=== PATIENT | female | born 1985 | race American Indian/Alaskan Native ===

== ENCOUNTER 2020-05-14 22:52 | Emergency (ER) | payer OTHER ==
[2020-05-14] MEDS ORDERED: ACETAMINOPHEN 500 MG TAB PO ONE (23:42)
[2020-05-14 23:50] VITALS: BP 132/79
[2020-05-15 00:27] LABS: Basophils % (Auto) 0.2 % (0.0-1.8); Eosinophils # (Auto) 0.1 K/mm3 (0.0-0.4); Eosinophils % (Auto) 0.6 % (0.0-4.3); Hematocrit 37.7 % (30.3-42.9); Lymphocytes # (Auto) 2.9 K/mm3 (1.2-5.4); Lymphocytes % (Auto) 21.4 % (13.4-35.0); Mean Corpuscular HGB Conc 35 % (30-34); Mean Corpuscular Volume 93 fl (79-97); Monocytes # (Auto) 1.1 K/mm3 (0.0-0.8); Platelet Count 278 K/mm3 (140-440); Red Blood Count 4.07 M/mm3 (3.65-5.03); Red Cell Distribution Width 14.8 % (13.2-15.2)
[2020-05-15 00:38] LABS: Alanine Aminotransferase 10 units/L (7-56); Albumin 3.9 g/dL (3.9-5); Blood Urea Nitrogen 5 mg/dL (7-17); Calcium 9.4 mg/dL (8.4-10.2); Hemolysis Index 5
[2020-05-15 00:45] LABS: BUN/Creatinine Ratio 10
[2020-05-15 01:11] LABS: Bilirubin,Urine NEG (Negative); Blood,Urine NEG (Negative); Color,Urine Yellow (Yellow); Mucus,Urine FEW /HPF; Protein,Urine <15 mg/dL mg/dL (Negative)
--- NOTE | 2020-05-15 01:39 | Emergency Department Report ---
HPI - General Chief Complaint: Abdominal Pain Time Seen by Provider: 05/15/20 00:21 - HPI HPI: This is a 35-year-old -[place] female presents to the emergency department with complaint of some pelvic pain/pressure and low back pain, that started earlier today. Patient took some Tylenol about 4 hours prior to presentation without much relief. She denies any vaginal bleeding, vaginal discharge, dysuria, fever, nausea, vomiting, constipation or diarrhea. She is currently about 19 weeks with this she is G3, P2. Currently the pelvic and back pain is at about a 7 out of 10 in intensity. No known aggravating or alleviating factors. The patient follows with Dr. Isidro for OBGYN and [facility] for perinatology. No recent travel or sick contacts at home. ED Past Medical Hx - Past Medical History Previous Medical History?: No - Surgical History Past Surgical History?: No - Social History Smoking Status: Never Smoker Substance Use Type: None ED Review of Systems ROS: Stated complaint: 19WKS PREG/LOWER ABD/BACK PAIN Other details as noted in HPI Comment: All other systems reviewed and negative Constitutional: denies: chills, fever Eyes: denies: eye pain, vision change ENT: denies: ear pain, throat pain Respiratory: denies: cough, shortness of breath Cardiovascular: denies: chest pain, palpitations Gastrointestinal: denies: nausea, vomiting Genitourinary: other (pelvic pain). denies: discharge Musculoskeletal: back pain. denies: arthralgia Skin: denies: rash, lesions Neurological: denies: headache, weakness Physical Exam - Physical Exam Vital Signs: Vital Signs 05/14/20 05/15/20 23:39 00:05 Temperature 98.1 F Pulse Rate 100 H Respiratory 16 18 Rate Blood Pressure 132/79 O2 Sat by Pulse 100 Oximetry Physical Exam: GENERAL: The patient is well-developed well-nourished. HENT: Normocephalic. Atraumatic. Patient has moist mucous membranes. EYES: Extraocular motions are intact. NECK: Supple. Trachea is midline. CHEST/LUNGS: Clear to auscultation. There is no respiratory distress noted. HEART/CARDIOVASCULAR: Regular. There is no tachycardia. There is no murmur. ABDOMEN: Abdomen is soft, nontender. No guarding. Patient has normal bowel sounds. SKIN: Skin is warm and dry. NEURO: The patient is awake, alert, and oriented. The patient is cooperative. Normal speech. MUSCULOSKELETAL: There is no tenderness or deformity. There is no limitation range of motion. BACK: No midline thoracic or lumbar tenderness to palpation. ED Course Vital Signs 05/14/20 05/15/20 23:39 00:05 Temperature 98.1 F Pulse Rate 100 H Respiratory 16 18 Rate Blood Pressure 132/79 O2 Sat by Pulse 100 Oximetry ED Medical Decision Making - Lab Data Result diagrams: 05/15/20 00:01 05/15/20 00:01 Lab Results 05/14/20 05/15/20 05/15/20 Range/Units 23:44 00:01 00:01 WBC 13.6 H (4.5-11.0) K/mm3 RBC 4.07 (3.65-5.03) M/mm3 Hgb 13.0 (10.1-14.3) gm/dl Hct 37.7 (30.3-42.9) % MCV 93 (79-97) fl MCH 32 (28-32) pg MCHC 35 H (30-34) % RDW 14.8 (13.2-15.2) % Plt Count 278 (140-440) K/mm3 Lymph % (Auto) 21.4 (13.4-35.0) % [place] % (Auto) 8.0 H (0.0-7.3) % Eos % (Auto) 0.6 (0.0-4.3) % Baso % (Auto) 0.2 (0.0-1.8) % Lymph # (Auto) 2.9 (1.2-5.4) K/mm3 [place] # (Auto) 1.1 H (0.0-0.8) K/mm3 Eos # (Auto) 0.1 (0.0-0.4) K/mm3 Baso # (Auto) 0.0 (0.0-0.1) K/mm3 Seg Neutrophils % 69.8 (40.0-70.0) % Seg Neutrophils # 9.5 H (1.8-7.7) K/mm3 Sodium 137 (137-145) mmol/L Potassium 4.2 (3.6-5.0) mmol/L Chloride 101.6 (98-107) mmol/L Carbon Dioxide 23 (22-30) mmol/L Anion Gap 17 mmol/L BUN 5 L (7-17) mg/dL Creatinine 0.5 L (0.6-1.2) mg/dL Estimated GFR > 60 ml/min BUN/Creatinine Ratio 10 % Glucose 119 H (65-100) mg/dL Calcium 9.4 (8.4-10.2) mg/dL Total Bilirubin 0.20 (0.1-1.2) mg/dL AST 10 (5-40) units/L ALT 10 (7-56) units/L Alkaline Phosphatase 53 (35-129) units/L Total Protein 6.6 (6.3-8.2) g/dL Albumin 3.9 (3.9-5) g/dL Albumin/Globulin Ratio 1.4 % HCG, Quant (0-4) mIU/mL Urine Color Yellow (Yellow) Urine Turbidity Clear (Clear) Urine pH 6.0 (5.0-7.0) Ur Specific [place] 1.013 (1.003-1.030) Urine Protein <15 mg/dl (Negative) mg/dL Urine Glucose (UA) 50 (Negative) mg/dL Urine Ketones Neg (Negative) mg/dL Urine Blood Neg (Negative) Urine Nitrite Neg (Negative) Urine Bilirubin Neg (Negative) Urine Urobilinogen 2.0 (<2.0) mg/dL Ur Leukocyte Esterase Neg (Negative) Urine WBC (Auto) 1.0 (0.0-6.0) /HPF Urine RBC (Auto) 1.0 (0.0-6.0) /HPF U Epithel Cells (Auto) 4.0 (0-13.0) /HPF Urine Mucus Few /HPF 05/15/20 Range/Units 00:17 WBC (4.5-11.0) K/mm3 RBC (3.65-5.03) M/mm3 Hgb (10.1-14.3) gm/dl Hct (30.3-42.9) % MCV (79-97) fl MCH (28-32) pg MCHC (30-34) % RDW (13.2-15.2) % Plt Count (140-440) K/mm3 Lymph % (Auto) (13.4-35.0) % [place] % (Auto) (0.0-7.3) % Eos % (Auto) (0.0-4.3) % Baso % (Auto) (0.0-1.8) % Lymph # (Auto) (1.2-5.4) K/mm3 [place] # (Auto) (0.0-0.8) K/mm3 Eos # (Auto) (0.0-0.4) K/mm3 Baso # (Auto) (0.0-0.1) K/mm3 Seg Neutrophils % (40.0-70.0) % Seg Neutrophils # (1.8-7.7) K/mm3 Sodium (137-145) mmol/L Potassium (3.6-5.0) mmol/L Chloride (98-107) mmol/L Carbon Dioxide (22-30) mmol/L Anion Gap mmol/L BUN (7-17) mg/dL Creatinine (0.6-1.2) mg/dL Estimated GFR ml/min BUN/Creatinine Ratio % Glucose (65-100) mg/dL Calcium (8.4-10.2) mg/dL Total Bilirubin (0.1-1.2) mg/dL AST (5-40) units/L ALT (7-56) units/L Alkaline Phosphatase (35-129) units/L Total Protein (6.3-8.2) g/dL Albumin (3.9-5) g/dL Albumin/Globulin Ratio % HCG, Quant 69706 H (0-4) mIU/mL Urine Color (Yellow) Urine Turbidity (Clear) Urine pH (5.0-7.0) Ur Specific [place] (1.003-1.030) Urine Protein (Negative) mg/dL Urine Glucose (UA) (Negative) mg/dL Urine Ketones (Negative) mg/dL Urine Blood (Negative) Urine Nitrite (Negative) Urine Bilirubin (Negative) Urine Urobilinogen (<2.0) mg/dL Ur Leukocyte Esterase (Negative) Urine WBC (Auto) (0.0-6.0) /HPF Urine RBC (Auto) (0.0-6.0) /HPF U Epithel Cells (Auto) (0-13.0) /HPF Urine Mucus /HPF - Radiology Data Radiology results: report reviewed ULTRASOUND OBSTETRIC INDICATION / CLINICAL INFORMATION: Pelvic pain. Clinical Gestational Age (GA) in weeks, days: 19 weeks 0 days TECHNIQUE: Transabdominal. COMPARISON: None available. FINDINGS: NUMBER: Single PRESENTATION: breech PLACENTA: posterior and free of the os. MATERNAL ADNEXA: No significant abnormality. AMNIOTIC FLUID VOLUME: normal AMNIOTIC FLUID INDEX (LUIS) in cm (if measured): Not measured Cervical length is 4.5 cm anatomical survey not performed. MEASUREMENTS: - Biparietal Diameter = 4.1 cm = 18 weeks, 2 days - Head Circumference = 15.0 cm = 18 weeks, 0 days - Abdominal Circumference = 12.1 cm = 17 weeks, 6 days - Femur Length = 2.3 cm = 16 weeks, 6 days - Estimated Weight (in grams, if calculated): 196 g - Heart Rate (beats per minute): 163 ADDITIONAL FINDINGS: 2 fibroids are present posteriorly measuring 5.2 and 4.9 cm respectively. AVERAGE ULTRASOUND AGE (AUA) in weeks, days = 17 weeks 5 days IMPRESSION: 1. Single intrauterine with AUA of 17 weeks, 5 days 2. No significant acute sonographic abnormality. 3. Uterine fibroids - Medical Decision Making This patient presents to the emergency department with complaint of some pelvic pain/pressure that she also feels in the low back that started earlier today. It is a sharp pain that lasts for about 30 seconds and is intermittent. It was much more frequent earlier in the day, but improved somewhat after taking Tylenol this evening. She denies any vaginal bleeding or discharge, dysuria. Vital signs have been reassuring throughout her ED course including being afebr ile. Patient's labs show a mild leukocytosis of 13,000, a beta-hCG of about 41,000. Normal metabolic panel. No urinary tract infection found. ultrasound shows a live intrauterine at about 17 weeks. The patient has good outpatient follow-up with both her DIRECTOR BIOLOGY and perinatologist, and has an appointment today () with the DIRECTOR BIOLOGY. For all these reasons the patient appears safe for discharge home at this time. She has been instructed to return to the emergency department with any worsening of her symptoms or with any acute distress. Critical Care Time: No Critical care attestation.: If time is entered above; I have spent that time in minutes in the direct care of this critically ill patient, excluding procedure time. ED Disposition Clinical Impression: Pelvic pain Back pain Qualifiers: Back pain location: low back pain Chronicity: unspecified Back pain laterality: unspecified Sciatica presence: without sciatica Qualified Code(s): M54.5 - Low back pain Qualifiers: Weeks of gestation: 17 weeks Qualified Code(s): Z3A.17 - 17 weeks gestation of Disposition: DC-01 TO HOME OR SELFCARE Is pt being admited?: No Condition: Stable Instructions: Round Ligament Pain, Pelvic Pain, Female, Second Trimester of , Abdominal Pain (ED) Additional Instructions: Please follow-up with your DIRECTOR BIOLOGY as previously scheduled. Return to the emergency department with any worsening of your symptoms, development of vaginal bleeding, new or concerning symptoms not addressed during this emergency department visit, or with any acute distress. Referrals: OBGYN, Your [Other] - 05/15/20 Forms: Work/School Release Form(ED) Time of Disposition: 02:25
--- NOTE | 2020-05-15 07:37 | Ultrasound Report ---
ULTRASOUND OBSTETRIC INDICATION / CLINICAL INFORMATION: Pelvic pain. Clinical Gestational Age (GA) in weeks, days: 19 weeks 0 days TECHNIQUE: Transabdominal. COMPARISON: None available. FINDINGS: NUMBER: Single PRESENTATION: breech PLACENTA: posterior and free of the os. MATERNAL ADNEXA: No significant abnormality. AMNIOTIC FLUID VOLUME: normal AMNIOTIC FLUID INDEX (LUIS) in cm (if measured): Not measured Cervical length is 4.5 cm anatomical survey not performed. MEASUREMENTS: - Biparietal Diameter = 4.1 cm = 18 weeks, 2 days - Head Circumference = 15.0 cm = 18 weeks, 0 days - Abdominal Circumference = 12.1 cm = 17 weeks, 6 days - Femur Length = 2.3 cm = 16 weeks, 6 days - Estimated Weight (in grams, if calculated): 196 g - Heart Rate (beats per minute): 163 ADDITIONAL FINDINGS: 2 fibroids are present posteriorly measuring 5.2 and 4.9 cm respectively. AVERAGE ULTRASOUND AGE (AUA) in weeks, days = 17 weeks 5 days IMPRESSION: 1. Single intrauterine with AUA of 17 weeks, 5 days 2. No significant acute sonographic abnormality. 3. Uterine fibroids Signer Name: Judith Jackson MD Signed: 05/15/2020 2:05 AM Workstation Name: [email or web address]
== END 2020-05-15 02:44 | disposition home or self-care (01) ==
LOC: ED 22:52
DX: O26.892 Other specified pregnancy related conditions, second trimester (principal); R10.2 Pelvic and perineal pain; M54.5 Low back pain; Z3A.17 17 weeks gestation of pregnancy; Z88.8 Allergy status to other drugs, medicaments and biological substances
CPT/HCPCS: 36415; 76805; 80053; 81001; 84702; 85025

== ENCOUNTER 2020-06-16 23:55 | Emergency (ER) | payer OTHER ==
[2020-06-17 01:36] LABS: Basophils % (Auto) 0.3 % (0.0-1.8); Eosinophils # (Auto) 0.1 K/mm3 (0.0-0.4); Hematocrit 34.9 % (30.3-42.9); Hemoglobin 11.8 gm/dl (10.1-14.3); Lymphocytes # (Auto) 2.1 K/mm3 (1.2-5.4); Lymphocytes % (Auto) 16.6 % (13.4-35.0); Mean Corpuscular HGB Conc 34 % (30-34); Mean Corpuscular Volume 92 fl (79-97); Monocytes # (Auto) 0.6 K/mm3 (0.0-0.8); Monocytes % (Auto) 5.2 % (0.0-7.3); Platelet Count 274 K/mm3 (140-440); Red Blood Count 3.78 M/mm3 (3.65-5.03); Red Cell Distribution Width 14.6 % (13.2-15.2)
[2020-06-17 01:44] LABS: Alanine Aminotransferase 11 units/L (7-56); Albumin 3.6 g/dL (3.9-5); Blood Urea Nitrogen 5 mg/dL (7-17); Hemolysis Index 9
[2020-06-17 02:01] LABS: BUN/Creatinine Ratio 13
[2020-06-17 03:22] LABS: INR 0.98 (0.87-1.13)
[2020-06-17 03:23] LABS: Partial Thromboplastin Time 33.6 Sec. (24.2-36.6)
--- NOTE | 2020-06-17 03:32 | XRay Report ---
CHEST 1 VIEW 06/17/2020 2:17 AM INDICATION / CLINICAL INFORMATION: sob. COMPARISON: None available. FINDINGS: SUPPORT DEVICES: None. HEART / MEDIASTINUM: No significant abnormality. LUNGS / PLEURA: No significant pulmonary or pleural abnormality. No pneumothorax. ADDITIONAL FINDINGS: No significant additional findings. IMPRESSION: 1. No acute findings. Signer Name: Rodriguez Flores MD Signed: 06/17/2020 3:27 AM Workstation Name: [id number]
--- NOTE | 2020-06-17 03:46 | Emergency Department Report ---
ED Shortness of Breath HPI - General Chief Complaint: Dyspnea/Respdistress Stated Complaint: EMESIS/CHEST PAIN/NAUSEA Time Seen by Provider: 06/17/20 02:37 Source: patient Mode of arrival: Ambulatory Limitations: No Limitations - History of Present Illness Initial Comments: 35-year-old female, 23 weeks , presents to ED with chest pain or shortne ss of breath. Patient states she awoke from sleep experiencing shortness of breath. She reports an episode of emesis while driving to the emergency room. Patient states she is unsure if her symptoms are due to the medication that she is taking for labor called [place]. Patient denies any cough or fever. OB: Dr Reyes (located in [place]) Complaint: shortness of breath, chest pain -: hour(s) (4) Severity: moderate Quality: burning Consistency: constant Improves With: nothing Worsens With: nothing Associated Symptoms: chest pain, nausea/vomiting Treatments Prior to Arrival: none - Related Data Home Oxygen Therapy: No Allergies Allergy/AdvReac Type Severity Reaction Status Date / Time morphine Allergy Hives Verified 05/14/20 23:48 ED Review of Systems ROS: Stated complaint: EMESIS/CHEST PAIN/NAUSEA Other details as noted in HPI Comment: All other systems reviewed and negative Constitutional: denies: chills, fever Respiratory: shortness of breath Cardiovascular: chest pain Gastrointestinal: nausea, vomiting. denies: abdominal pain ED Past Medical Hx - Past Medical History Previous Medical History?: No - Surgical History Past Surgical History?: No - Social History Smoking Status: Never Smoker Substance Use Type: None ED Physical Exam - General Limitations: No Limitations General appearance: alert, in no apparent distress - Head Head exam: Present: atraumatic, normocephalic - Eye Eye exam: Present: normal appearance, EOMI - ENT ENT exam: Present: mucous membranes moist - Neck Neck exam: Present: normal inspection - Respiratory Respiratory exam: Present: normal lung sounds bilaterally. Absent: respiratory distress - Cardiovascular Cardiovascular Exam: Present: normal rhythm, tachycardia - GI/Abdominal GI/Abdominal exam: Present: soft, other (gravid abdomen; heart tones 153). Absent: tenderness - Extremities Exam Extremities exam: Present: normal inspection. Absent: pedal edema, calf tenderness - Neurological Exam Neurological exam: Present: alert, oriented X3 - Psychiatric Psychiatric exam: Present: normal affect, normal mood - Skin Skin exam: Present: warm, dry, intact, normal color ED Course Vital Signs 06/17/20 06/17/20 00:13 02:23 Temperature 98.8 F Pulse Rate 104 H 94 H Respiratory 16 17 Rate Blood Pressure 140/69 O2 Sat by Pulse 100 98 Oximetry - Consultations Consultation #1: 06/17/20 04:11 Serious reaction secondary to [place] injections include thromboemboli. Patient currently on this medication with complaint of chest pain and shortness of breath. PE is on the differential given pt's status, the fact that she is on this medication, and S1Q3T3 appearance of EKG. Discussed risks and benefits of CTA Chest. Patient asked to speak with her NAIL MAKER in order to make that decision. On-call physician is Dr. Garland. Both myself and patient spoke with Dr. Garland. After speaking w/ Dr Garland, patient agrees to have study performed. ED Medical Decision Making - Lab Data Result diagrams: 06/17/20 01:11 06/17/20 01:11 - EKG Data -: EKG Interpreted by Ct EKG shows normal: sinus rhythm, axis, intervals, QRS complexes, ST-T waves Rate: normal - EKG Data Interpretation: no acute changes, other (S1Q3T3 also present) - Radiology Data Radiology results: report reviewed, image reviewed - Medical Decision Making 35-year-old female, 23 weeks , presents to ED with chest pain or shortness of breath. Patient states she awoke from sleep experiencing shortness of breath and chest pain. Patient reported currently receiving [place] injections for prevention of labor. Serious reaction secondary to [place] injections include thromboemboli. Patient currently on this medication with complaint of chest pain and shortness of breath. PE is on the differential given pt's status, the fact that she is on this medication, and S1Q3T3 appearance of EKG. Discussed risks and benefits of CTA Chest. Patient asked to speak with her NAIL MAKER in order to make that decision. Both myself and patient spoke with Dr. Garland. After speaking w/ Dr Garland, patient agreed to have study performed. Results of CTA Chest negative for PE or any other abnormalities. No ST changes on EKG and troponin normal. Vitals are stable. heart tones normal. Will discharge at this time. Outpatient follow-up w/ OB advised. Return precautions given. - Differential Diagnosis PE, pneumonia, pulm edema, GERD, anxiety Critical care attestation.: If time is entered above; I have spent that time in minutes in the direct care of this critically ill patient, excluding procedure time. ED Disposition Clinical Impression: Chest pain, Shortness of breath Disposition: DC-01 TO HOME OR SELFCARE Is pt being admited?: No Condition: Stable Instructions: Chest Pain (ED), Shortness of Breath, Adult, [id number], Nonspecific Chest Pain, Adult, [id number] Referrals: PRIMARY CARE, [Primary Care Provider] - [facility] Time of Disposition: 05:29 HEART Score - HEART Score History: Slightly suspicious EKG: Normal Age: < 45 Risk factors: No known risk factors Troponin: Troponin T < 0.010 ng/mL (0.00-0.029) 06/17/20 02:53 Troponin: < normal limit HEART Score: 0
--- NOTE | 2020-06-17 05:17 | Cat Scan Report ---
CTA CHEST WITH IV CONTRAST INDICATION: Pt complains of chest pain, S.O.B., elevated D-dimer. 26 week female TECHNIQUE: Axial CT images were obtained through the chest after injection of 100 cc IV contrast. 3 plane MIP re constructions were produced. All CT scans at this location are performed using CT dose reduction for ALARA by means of automated exposure control. COMPARISON: None available. FINDINGS: Degraded by moderate respiratory motion artifact. PULMONARY ARTERIES: No pulmonary emboli. THORACIC AORTA: No acute abnormality. HEART: Normal. CORONARY ARTERIES: No significant calcification. PLEURA: No pleural effusion. No pneumothorax. LYMPH NODES: No significant adenopathy. LUNGS: No acute air space or interstitial disease. ADDITIONAL FINDINGS: None. UPPER ABDOMEN: No acute findings. SKELETAL STRUCTURES: No significant osseous abnormality. IMPRESSION: 1. No CT evidence for pulmonary embolism. 2. No acute findings. Signer Name: Rodriguez Flores MD Signed: 06/17/2020 5:13 AM Workstation Name: [id number]
[2020-06-17 06:01] VITALS: BP 116/56
== END 2020-06-17 05:40 | disposition home or self-care (01) ==
LOC: ED 23:55
DX: R07.89 Other chest pain (principal); R06.02 Shortness of breath
CPT/HCPCS: 36415; 71045; 71275; 80053; 84484; 85025; 85379; 85610; 85730; 93005; 99284; Q9967